=== PATIENT | male | born 1995 | race Caucasian/White ===

== ENCOUNTER 2018-08-08 14:26 | Emergency (ER) | payer OTHER ==
[2018-08-08 15:08] LABS: HEMATOCRIT 44.3 % (42.0-52.0); HEMOGLOBIN 14.7 g/dl (13.5-17.5); MEAN CORPUSCULAR HEMOGLOBIN 29.8 pg (27.0-33.0); MEAN CORPUSCULAR HGB CONC 33.2 g/dl (32.0-36.5); MEAN CORPUSCULAR VOLUME 89.9 fl (80.0-96.0); PLATELET COUNT, AUTOMATED 142 10^3/uL (150-450); RED BLOOD COUNT 4.93 10^6/uL (4.30-6.10); RED CELL DISTRIBUTION WIDTH 12.4 % (11.5-14.5); WHITE BLOOD COUNT 8.8 10^3/uL (4.0-10.0)
[2018-08-08] MEDS: LIDOCAINE 1% MDV 20ML VIAL SC (15:09)
[2018-08-08] MEDS: ACETAMINOPHEN TAB 650MG DOSE (2X325MG) PO (15:29)
[2018-08-08] MEDS: ADACEL/BOOSTRIX VACCINE (DIPHTH/PERTUSS/ACELL/TETANUS)0.5ML SYR (90715) IM (15:30)
[2018-08-08 15:53] LABS: ACETAMINOPHEN LEVEL < 2.0 UG/ML (10.0-30.0); ALBUMIN 4.1 GM/DL (3.2-5.2); ALBUMIN/GLOBULIN RATIO 1.46 (1.00-1.93); ALKALINE PHOSPHATASE 68 U/L (45-117); ALT/SGPT 23 U/L (12-78); ANION GAP 6 MEQ/L (8-16); AST/SGOT 18 U/L (7-37); BILIRUBIN,DIRECT < 0.1 MG/DL (0.0-0.2); BILIRUBIN,TOTAL 0.3 MG/DL (0.2-1.0); BLOOD UREA NITROGEN 14 MG/DL (7-18); CALCIUM LEVEL 8.7 MG/DL (8.5-10.1); CARBON DIOXIDE LEVEL 28 MEQ/L (21-32); CHLORIDE LEVEL 108 MEQ/L (98-107); CREATININE FOR GFR 0.91 MG/DL (0.70-1.30); ETHYL ALCOHOL (ETHANOL) 0.003 % (0.000-0.010); GLOMERULAR FILTRATION RATE > 60.0 (>60); GLUCOSE, FASTING 98 MG/DL (70-100); POTASSIUM SERUM 4.2 MEQ/L (3.5-5.1); SALICYLATE LEVEL 2.8 MG/DL (5.0-30.0); SODIUM LEVEL 142 MEQ/L (136-145); THYROID STIMULATING HORMONE 0.469 uIU/ML (0.358-3.740); TOTAL PROTEIN 6.9 GM/DL (6.4-8.2)
[2018-08-08 16:31] LABS: AMPHETAMINES LEVEL URINE NEGATIVE (NEGATIVE); BARBITURATES URINE NEGATIVE (NEGATIVE); BENZODIAZEPINES URINE NEGATIVE (NEGATIVE); CANNABINOIDS URINE NEGATIVE (NEGATIVE); COCAINE METABOLITE URINE NEGATIVE (NEGATIVE); METHADONE URINE NEGATIVE (NEGATIVE); OPIATES URINE NEGATIVE (NEGATIVE); PHENCYCLIDINE URINE NEGATIVE (NEGATIVE)
== END 2018-08-08 18:39 | disposition home or self-care (01) ==
LOC: M ED 14:26
DX: S61.411A Laceration without foreign body of right hand, initial encounter (principal); X58.XXXA Exposure to other specified factors, initial encounter; Y92.099 Unspecified place in other non-institutional residence as the place of occurrence of the external cause; Y93.9 Activity, unspecified; Y99.9 Unspecified external cause status; Z88.8 Allergy status to other drugs, medicaments and biological substances
CPT/HCPCS: 90715

== ENCOUNTER 2018-08-26 09:00 | Emergency (ER) | payer OTHER ==
[~2018-08-26] VITALS: Ht 180.3 cm; Wt 72.7 kg
[2018-08-26 09:01] VITALS: BP 142/76
[2018-08-26] MEDS ORDERED: CITA20TA4 PO (09:04)
[2018-08-26] MEDS ORDERED: NORCOTAB PO (09:26)
[2018-08-26] MEDS ORDERED: CLEO300C2 PO (09:26)
== END 2018-08-26 09:32 | disposition home or self-care (01) ==
LOC: M ED 09:00
DX: K04.7 Periapical abscess without sinus (principal); F33.9 Major depressive disorder, recurrent, unspecified; F41.9 Anxiety disorder, unspecified; Z88.8 Allergy status to other drugs, medicaments and biological substances; F17.210 Nicotine dependence, cigarettes, uncomplicated

== ENCOUNTER 2018-12-01 09:58 | Emergency (ER) | payer OTHER ==
[~2018-12-01] VITALS: Ht 177.8 cm; Wt 77.3 kg
[~2018-12-01 09:58] MED LIST: CITA20TA6 PO; CLEO300C2 PO; HYDR-3715 PO
[2018-12-01 09:59] VITALS: BP 132/78
[2018-12-01] MEDS ORDERED: IBUP80TA PO (11:07)
[2018-12-01] MEDS ORDERED: CLIN150C14 PO (11:07)
[2018-12-01] MEDS ORDERED: MAGICMW SSP (11:13)
[2018-12-01] MEDS ORDERED: IBUPROFEN 800 MG TAB PO ONE (11:15)
[2018-12-01] MEDS ORDERED: CLINDAMYCIN 150 MG CAP PO ONE (11:15)
== END 2018-12-01 11:23 | disposition home or self-care (01) ==
LOC: M ED 09:58
DX: K04.7 Periapical abscess without sinus (principal); F17.210 Nicotine dependence, cigarettes, uncomplicated; Z79.899 Other long term (current) drug therapy

== ENCOUNTER 2019-01-27 23:12 | Emergency (ER) | payer OTHER ==
[~2019-01-27] VITALS: Ht 180.3 cm; Wt 77.3 kg
[~2019-01-27 23:12] MED LIST changes: +CLIN150C14 PO; +IBUP80TA PO; +MAGICMW SSP
[2019-01-28 00:30] LABS: BASO # 0.1 10^3/uL (0.0-0.2); BASO % 0.7 % (0.0-1.0); EOS # 0.4 10^3/uL (0.0-0.50); EOS % 4.1 % (0.0-3.0); HEMATOCRIT 45.4 % (42.0-52.0); HEMOGLOBIN 15.5 g/dl (13.5-17.5); LYMPH # 1.5 10^3/uL (1.5-6.5); LYMPH % 15.9 % (24.0-44.0); MEAN CORPUSCULAR HEMOGLOBIN 30.4 pg (27.0-33.0); MEAN CORPUSCULAR HGB CONC 34.1 g/dl (32.0-36.5); MONO # 0.7 10^3/uL (0.0-0.8); MONO % 7.6 % (0.0-5.0); NEUTROPHILS # 6.8 10^3/uL (1.8-7.7); NEUTROPHILS % 71.4 % (36.0-66.0); PLATELET COUNT, AUTOMATED 156 10^3/uL (150-450); WHITE BLOOD COUNT 9.5 10^3/uL (4.0-10.0)
[2019-01-28 01:01] LABS: ALBUMIN 4.1 GM/DL (3.2-5.2); ALT/SGPT 32 U/L (12-78); BILIRUBIN,DIRECT < 0.1 MG/DL (0.0-0.2); BILIRUBIN,TOTAL 0.2 MG/DL (0.2-1.0); BLOOD UREA NITROGEN 17 MG/DL (7-18); CALCIUM LEVEL 9.4 MG/DL (8.5-10.1); CARBON DIOXIDE LEVEL 30 MEQ/L (21-32); CHLORIDE LEVEL 105 MEQ/L (98-107); CREATININE FOR GFR 0.93 MG/DL (0.70-1.30); GLOMERULAR FILTRATION RATE > 60.0 (>60); GLUCOSE, FASTING 104 MG/DL (70-100); LIPASE 73 U/L (73-393); POTASSIUM SERUM 4.3 MEQ/L (3.5-5.1); SODIUM LEVEL 140 MEQ/L (136-145); TOTAL PROTEIN 7.5 GM/DL (6.4-8.2)
[2019-01-28] MEDS ORDERED: ONDANSETRON 4MG/2ML VIAL (J2405) IV ONE (04:45)
[2019-01-28] MEDS ORDERED: KETOROLAC 30 MG/ML VIAL (J1885) IV ONE (04:45)
[2019-01-28] MEDS ORDERED: NS 1,000 ML IV ONE (04:45)
[2019-01-28] MEDS ORDERED: ONDA4TAB6 PO (06:43)
[2019-01-28 06:49] VITALS: BP 124/75
== END 2019-01-28 06:51 | disposition home or self-care (01) ==
LOC: M ED 23:12
DX: K52.9 Noninfective gastroenteritis and colitis, unspecified (principal); Z72.0 Tobacco use; Z79.899 Other long term (current) drug therapy; Z88.8 Allergy status to other drugs, medicaments and biological substances
CPT/HCPCS: 36415; 80048; 80076; 83690; 85025; 96374; 96375; 99284; J1885; J2405

== ENCOUNTER 2019-08-04 23:47 | Emergency (ER) | payer OTHER ==
[~2019-08-04] VITALS: Ht 175.3 cm; Wt 80.0 kg
[~2019-08-04 23:47] MED LIST changes: +ONDA4TAB6 PO
[2019-08-05 00:27] LABS: HEMATOCRIT 44.1 % (42.0-52.0); HEMOGLOBIN 14.4 g/dl (13.5-17.5); MEAN CORPUSCULAR HEMOGLOBIN 29.3 pg (27.0-33.0); MEAN CORPUSCULAR HGB CONC 32.7 g/dl (32.0-36.5); MEAN CORPUSCULAR VOLUME 89.6 fl (80.0-96.0); PLATELET COUNT, AUTOMATED 139 10^3/uL (150-450); RED BLOOD COUNT 4.92 10^6/uL (4.30-6.10)
[2019-08-05 01:12] LABS: ACETAMINOPHEN LEVEL < 2.0 UG/ML (10.0-30.0); ALBUMIN 4.2 GM/DL (3.2-5.2); ALT/SGPT 27 U/L (12-78); BILIRUBIN,DIRECT 0.1 MG/DL (0.0-0.2); BILIRUBIN,TOTAL 0.2 MG/DL (0.2-1.0); BLOOD UREA NITROGEN 22 MG/DL (7-18); CALCIUM LEVEL 8.8 MG/DL (8.5-10.1); CARBON DIOXIDE LEVEL 26 MEQ/L (21-32); CHLORIDE LEVEL 107 MEQ/L (98-107); CREATININE FOR GFR 1.02 MG/DL (0.70-1.30); ETHYL ALCOHOL (ETHANOL) < 0.003 % (0.000-0.010); GLOMERULAR FILTRATION RATE > 60.0 (>60); GLUCOSE, FASTING 93 MG/DL (70-100); SALICYLATE LEVEL 2.1 MG/DL (5.0-30.0); SODIUM LEVEL 140 MEQ/L (136-145); TOTAL PROTEIN 7.2 GM/DL (6.4-8.2)
[2019-08-05 02:55] LABS: AMPHETAMINES LEVEL URINE NEGATIVE (NEGATIVE); BARBITURATES URINE NEGATIVE (NEGATIVE); BENZODIAZEPINES URINE NEGATIVE (NEGATIVE); CANNABINOIDS URINE NEGATIVE (NEGATIVE); COCAINE METABOLITE URINE NEGATIVE (NEGATIVE); METHADONE URINE NEGATIVE (NEGATIVE); OPIATES URINE NEGATIVE (NEGATIVE); PHENCYCLIDINE URINE NEGATIVE (NEGATIVE)
--- NOTE | 2019-08-05 08:21 | ECGEPIP ---
[facility] - ED Test Date: 2019-08-05 Pat Name: KOKO CAMPOS Department: Room: - Gender: Male Client [employer] Specialist: KCJ : 1995 Requested By: JASEN Arizmendi Order Number: [id number] Reading MD: Eduardo Laureano Measurements Intervals [place] Rate: 64 P: 57 [place]: 136 QRS: 49 QRSD: 96 T: 38 QT: 405 QTc: 419 Interpretive Statements SINUS RHYTHM WITH SINUS ARRHYTHMIA SIMILAR TO 08/08/18 Electronically Signed on 08-05-2019 8:21:28 EST by Eduardo Laureano
[2019-08-05 08:45] VITALS: BP 126/59
== END 2019-08-05 08:51 ==
LOC: M ED 23:47
DX: R45.851 Suicidal ideations (principal); F32.9 Major depressive disorder, single episode, unspecified; F17.200 Nicotine dependence, unspecified, uncomplicated; Z88.8 Allergy status to other drugs, medicaments and biological substances
CPT/HCPCS: 80048; 80076; 80307; 84443; 85027; 93005; 99284; G0480

== ENCOUNTER 2020-06-27 12:45 | Inpatient (IN) | payer MEDICAID, OTHER ==
[~2020-06-27] VITALS: Ht 180.3 cm; Wt 72.0 kg
[2020-06-27] MEDS ORDERED: CITA20TA7 PO (12:58)
[2020-06-27 13:27] LABS: HEMOGLOBIN 14.6 g/dl (13.5-17.5); MEAN CORPUSCULAR HEMOGLOBIN 28.7 pg (27.0-33.0); MEAN CORPUSCULAR HGB CONC 32.4 g/dl (32.0-36.5); MEAN CORPUSCULAR VOLUME 88.6 fl (80.0-96.0); PLATELET COUNT, AUTOMATED 136 10^3/uL (150-450); RED BLOOD COUNT 5.08 10^6/uL (4.30-6.10); WHITE BLOOD COUNT 6.5 10^3/uL (4.0-10.0)
[2020-06-27 13:51] LABS: AMPHETAMINES LEVEL URINE NEGATIVE (NEGATIVE); BARBITURATES URINE NEGATIVE (NEGATIVE); BENZODIAZEPINES URINE NEGATIVE (NEGATIVE); CANNABINOIDS URINE NEGATIVE (NEGATIVE); COCAINE METABOLITE URINE NEGATIVE (NEGATIVE); METHADONE URINE NEGATIVE (NEGATIVE); OPIATES URINE NEGATIVE (NEGATIVE); PHENCYCLIDINE URINE NEGATIVE (NEGATIVE)
[2020-06-27 13:58] LABS: ACETAMINOPHEN LEVEL < 2.0 UG/ML (10.0-30.0); ALBUMIN 4.2 GM/DL (3.2-5.2); ALT/SGPT 28 U/L (12-78); BILIRUBIN,DIRECT < 0.1 MG/DL (0.0-0.2); BILIRUBIN,TOTAL 0.4 MG/DL (0.2-1.0); BLOOD UREA NITROGEN 17 MG/DL (7-18); CALCIUM LEVEL 8.6 MG/DL (8.5-10.1); CARBON DIOXIDE LEVEL 27 MEQ/L (21-32); CHLORIDE LEVEL 107 MEQ/L (98-107); CREATININE FOR GFR 0.93 MG/DL (0.70-1.30); ETHYL ALCOHOL (ETHANOL) < 0.003 % (0.000-0.010); GLOMERULAR FILTRATION RATE > 60.0 (>60); GLUCOSE, FASTING 89 MG/DL (70-100); POTASSIUM SERUM 4.1 MEQ/L (3.5-5.1); SALICYLATE LEVEL 2.3 MG/DL (5.0-30.0); SODIUM LEVEL 140 MEQ/L (136-145); TOTAL PROTEIN 7.2 GM/DL (6.4-8.2)
[2020-06-27] MEDS ORDERED: NICOTINE 21MG/24HR 1 EA TRANSDERMAL TD ONE (14:15)
--- NOTE | 2020-06-28 07:52 | ECGEPIP ---
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
[2020-06-28] MEDS ORDERED: CitaloPRAM (CeleXA) 20 MG TAB PO ONE (08:00)
[2020-06-28] MEDS ORDERED: MAALOX 30 ML SUSP *UDC PO PRN (14:15)
[2020-06-28] MEDS ORDERED: ACETAMINOPHEN TAB 650MG DOSE (2X325MG) PO PRN (14:15)
[2020-06-28] MEDS ORDERED: MOM 30ML SUSPENSION UDC PO PRN (14:15)
[2020-06-28 14:44] VITALS: BP 133/76
[2020-06-29 06:49] VITALS: BP 127/69
[2020-06-29] MEDS: NICOTINE 21MG/24HR 1 EA TRANSDERMAL TD SCH (08:17)
[2020-06-29] MEDS ORDERED: CitaloPRAM (CeleXA) 20 MG TAB PO SCH (09:00)
--- NOTE | 2020-06-29 10:23 | MHHPEPDOC ---
[facility] History & Physical History and Physical DATE OF ADMISSION: Jun 28, 2020 at 14:01 HPI: Bean presents today for treatment of depressive disorder. Patient reports feelings of worthlessness occassionally. He denies hearing voices or staying up for weeks at a time. He notes he experiences migraines. MEDICATIONS: He notes taking Citalopram 20 mg and it slightly improves his symptoms of depression. He reports taking 40 mg in the past, but was placed back on 20 mg d ue to a switch in doctors. He reports starting Citalopram 2 years ago. MEDICAL HISTORY: He reports seeing Anna at [facility] for therapy. Patient reports visiting an inpatient mental health unit last year due to similar symptoms. FAMILY HISTORY: Patient states his brother has mental health issues. SOCIAL HISTORY - LIVING SITUATION: He notes he was living with his and children, but now is currently moving to his parents house. Patient states he has 3 of his children, one step-child, and custody of 2 of his nieces. SOCIAL HISTORY - SMOKING: He reports smoking a pack of cigarettes a day. Objective Appearance: Well nourished. Well groomed. Appears to be stated age. Behavior: Pleasant. Cooperative with good eye contact. Engaged. Mood: Dysthymic. Mildly constricted. Thought Content: No evidence of aggressive or homicidal ideation. No evidence of suicidal ideation. No evidence of delusions. No thoughts of self harm. Judgement: Poor to fair. Insight: Poor to fair. Assessment F32.89 Other specified depressive episodes Plan Discharge patient. Increase the Citalopram to 40 milligrams daily. Observe likely length of stays three days. Treatment priorities are 1, risk for suicide 2, depression. Will observe, may need extension. Vital Signs Vital Signs Date Time Temp Pulse Resp B/P (MAP) Pulse Ox O2 Delivery O2 Flow Rate FiO2 06/29/20 06:49 98.1 81 12 127/69 (88) Room Air 06/28/20 14:44 98 Medications Scheduled Citalopram Hydrobromide (Citalopram HBr) 20 Mg Tablet, 20 MG PO DAILY, (Reported) Allergies Coded Allergies: loratadine (Verified Adverse Reaction, Unknown, 01/28/19) mood swings KETTY LINO DO Jun 29, 2020 10:23
[2020-06-29 17:53] VITALS: BP 114/60
--- NOTE | 2020-06-29 18:09 | HPEPDOC ---
[facility] Medical History & Physical Date of Admission Jun 28, 2020 Date of Service: Jun 29, 2020 History and Physical CHIEF COMPLAINT: Unspecified depressive disorder HISTORY OF PRESENT ILLNESS: Mr. Murillo is a 24 year old male with tobacco use disorder in the inpatient mental health unit for unspecified depressive disorder. Today, he is feeling well. Denies any fever or chills, lightheadedness or dizziness, chest pain, dyspnea, abdominal pain, diarrhea, or dysuria. Reports having a chronic cough secondary to smoking. Discussed briefly about tobacco cessation. He tells me that he does not feel ready to quit. He uses smoking as stress relief. His temper would be short if he goes too long without smoking. PAST MEDICAL HISTORY: 1. Depression/anxiety 2. Tobacco use disorder PAST SURGICAL HISTORY: 1. Tonsillectomy. SOCIAL HISTORY: Tobacco use: Current smoker, smoked for 8 years, 1 pack per day ETOH: Denies Illicit drug use: Denies FAMILY HISTORY: Father: History of diabetes mellitus, high blood pressure, hyperlipidemia Mother: History of hyperlipidemia, hypertension ALLERGIES: Please see below. REVIEW OF SYSTEMS: CONSTITUTIONAL: Denies any fever or chills. Denies lightheadedness or dizziness. ENT: Denies sore throat. Denies dysphagia. RESPIRATORY: Reports chronic cough. Denies shortness of breath CARDIOVASCULAR: Denies chest pain. Denies palpitations. GASTROINTESTINAL: Denies abdominal pain. Denies diarrhea. Denies constipation GENITOURINARY: Denies dysuria. CUTANEOUS: Denies rashes. HEMATOLOGY/ONCOLOGY: Reports easy bruisability MUSCULOSKELETAL: Denies muscle weakness. ENDOCRINE: Denies polyphagia, denies polyuria. HOME MEDICATIONS: Please see below. PHYSICAL EXAMINATION: VITAL SIGNS: Temperature 97.8, pulse 58, respiratory rate 16, blood pressure 114/60, pulse oximetry 98 % on room air. GENERAL: Comfortable, in no apparent distress. HEENT: Head normocephalic/atraumatic, EOMI, sclera clear. NECK: Supple, no JVD. RESPIRATORY: Lungs clear to auscultation bilaterally, no rales, wheeze or rhonchi. CARDIOVASCULAR: Regular rate and rhythm. ABDOMEN: Soft, nontender, no guarding or rebound tenderness. Normal bowel sounds. MUSCLE SKELETAL: Muscle strength 5/5 in all extremities. NEUROLOGICAL: CN 312 grossly intact, no focal deficits noted. PSYCHOLOGICAL: Normal mood and affect LABORATORY DATA: See below. ASSESSMENT and PLAN: 1. Unspecified depressive disorder Patient is in the inpatient mental health unit 2. Tobacco use disorder Discussed alternatives to smoking such as nicotine replacement. He says his tried it before in the past and has not helped him. He feels that he is not ready to quit at this time. He uses smoking as a stress reliever Thank you for involving us in patient care. We will sign off at this time. It is any further questions or concerns please do not hesitate to reconsult us Vital Signs Vital Signs Date Time Temp Pulse Resp B/P (MAP) Pulse Ox O2 Delivery O2 Flow Rate FiO2 06/29/20 17:53 97.8 58 16 114/60 (78) Room Air 06/28/20 14:44 98 Home Medications Scheduled Citalopram Hydrobromide (Citalopram HBr) 20 Mg Tablet, 20 MG PO DAILY Allergies Coded Allergies: loratadine (Verified Adverse Reaction, Unknown, 01/28/19) mood swings A-FIB/CHADSVASC A-FIB History Current/History of A-Fib/PAF?: No DEYVI SAMUEL DO Jun 29, 2020 18:08
[2020-06-29] MEDS: traZODone 50 MG TAB PO PRN (23:13)
[2020-06-30 06:53] VITALS: BP 119/56
[2020-06-30] MEDS: NICOTINE 21MG/24HR 1 EA TRANSDERMAL TD SCH (09:05)
[2020-06-30] MEDS: CitaloPRAM (CeleXA) 20 MG TAB PO SCH (09:06)
--- NOTE | 2020-06-30 10:41 | MHIPNPDOC ---
[facility] Progress Note Progress Note DATE OF SERVICE: 06/30/20 HPI: Bean presents today for a follow-up. Patient reports he is doing well. He notes voices are improving. Patient denies suicidal ideation, homicidal lalit ation, or visual hallucinations. He notes he will still scream sometimes. Objective Behavior: Poor eye contact. Cooperative. Affect: Flat with little reactivity. Cognition: Associations mildly intact. Appeears to be internally preoccupied. Thought Form: Linear and goal directed. Judgement: Fair. Insight: Fair. Assessment F25.0 Schizoaffective disorder, bipolar type Plan Continue with increased Zyprexa at 10 milligrams, Trileptal and Seroquel at this time. Will likely may need long-term treatment if does not improve. Vital Signs Vital Signs Date Time Temp Pulse Resp B/P (MAP) Pulse Ox O2 Delivery O2 Flow Rate FiO2 06/30/20 06:53 97.5 72 16 119/56 (77) 98 Room Air Current Medications Current Medications Medications (Trade) Dose Ordered Sig/[place] Route PRN Reason Start Time Stop Time Status Last Admin Dose Admin Acetaminophen (Tylenol Tab) 650 mg Q6HP PRN PO HEADACHE or DISCOMFORT 06/28/20 14:15 Al Hydrox/Mg Hydrox/Simethicone (Mylanta) 30 ml Q4HP PRN PO HEARTBURN/INDIGESTION 06/28/20 14:15 Citalopram Hydrobromide (CeleXA) 20 mg DAILY PO 06/29/20 09:00 06/29/20 14:24 DC 06/29/20 08:16 Citalopram Hydrobromide (CeleXA) 40 mg DAILY PO 06/30/20 09:00 06/30/20 09:06 Home Med (Med Rec Complete!) ASDIRECTED XX 06/27/20 17:30 06/27/20 17:25 DC Magnesium Hydroxide (Milk Of Magnesia) 30 ml DAILYPRN PRN PO CONSTIPATION 06/28/20 14:15 Nicotine (Nicoderm Cq 21mg) 1 patch DAILY TD 06/29/20 09:00 06/30/20 09:05 Trazodone HCl (Desyrel) 50 mg QHSP PRN PO INSOMNIA 06/28/20 14:15 06/29/20 23:13 Allergies Coded Allergies: loratadine (Verified Adverse Reaction, Unknown, 01/28/19) mood swings KETTY LINO DO Jun 30, 2020 10:41
[2020-06-30 18:46] VITALS: BP 132/59
[2020-06-30] MEDS: traZODone 50 MG TAB PO PRN (22:37)
[2020-07-01 06:20] VITALS: BP 107/51
[2020-07-01] MEDS: CitaloPRAM (CeleXA) 20 MG TAB PO SCH (09:10)
[2020-07-01] MEDS: NICOTINE 21MG/24HR 1 EA TRANSDERMAL TD SCH (09:11)
--- NOTE | 2020-07-01 11:02 | MHDSPDOC ---
[facility] Discharge Summary Discharge Summary DATE OF ADMISSION: Jun 28, 2020 at 14:01 DATE OF DISCHARGE: DISCHARGE DIAGNOSES: 1. . 2. . REASON FOR ADMISSION: CONSULTANTS INVOLVED: TREATMENT AND PROGRESS ON THE UNIT : . HOSPITAL COURSE: DISCHARGE ASSESSMENT: MENTAL STATUS EXAMINATION ON DISCHARGE: Patient is a -year old male, who is . Speech is . Language skills are . Thought processes including: . Thought content: . Abstract reasoning, and computation: . Description of associations: . Description of abnormal or psychotic thoughts: . Judgment: . Insight: . Orientation to . Recent and remote memory: . Attention span and concentration: . Language: . Fund of knowledge: . Mood: . Affect: . MEDICATIONS ON DISCHARGE: - for . - for . - for . PLAN/FOLLOWUP ARRANGEMENTS: . The amount of time spent in the coordination of care for this patient was approximately minutes. Vital Signs/I&Os Vital Signs Date Time Temp Pulse Resp B/P (MAP) Pulse Ox O2 Delivery O2 Flow Rate FiO2 07/01/20 06:20 98.1 56 16 107/51 (69) 96 Room Air Medications Scheduled Citalopram Hydrobromide (Citalopram HBr) 20 Mg Tablet, 20 MG PO DAILY, (Reported) Allergies Coded Allergies: loratadine (Verified Adverse Reaction, Unknown, 01/28/19) mood swings KETTY LINO DO Jul 01, 2020 11:02
[2020-07-01] MEDS ORDERED: CELE20TA PO (11:48)
[2020-07-01] MEDS ORDERED: NICO21PAT TD (11:48)
== END 2020-07-01 12:39 | disposition home or self-care (01) | DRG 753 ==
LOC: M ED 12:45 → M ED INP 06-28 14:01 → M PSY 06-28 14:45
PROVIDERS: ADMIT Psychiatry & Neurology Addiction Medicine; ATTEND Psychiatry & Neurology Addiction Medicine
DX: F32.89 Other specified depressive episodes (principal); F17.210 Nicotine dependence, cigarettes, uncomplicated; Z88.8 Allergy status to other drugs, medicaments and biological substances; Z79.899 Other long term (current) drug therapy

== ENCOUNTER 2023-09-19 14:13 | Emergency (ER) | payer BC, MEDICAID ==
[~2023-09-19] VITALS: Ht 177.8 cm; Wt 70.1 kg
[~2023-09-19 14:13] MED LIST changes: +CELE20TA PO; +CITA20TA7 PO; -CLIN150C14 PO; +CLIN150C17 PO; +NICO21PAT TD
[2023-09-19 15:55] LABS: BASO # 0.1 10^3/uL (0.0-0.2); BASO % 0.4 % (0.0-1.0); EOS # 0.2 10^3/uL (0.0-0.5); EOS % 1.5 % (0.0-3.0); HEMATOCRIT 43.7 % (42.0-52.0); HEMOGLOBIN 14.9 g/dl (13.5-17.5); LYMPH % 7.1 % (24.0-44.0); MEAN CORPUSCULAR HEMOGLOBIN 29.8 pg (27.0-33.0); MEAN CORPUSCULAR HGB CONC 34.1 g/dl (32.0-36.5); MEAN CORPUSCULAR VOLUME 87.4 fl (80.0-96.0); MONO # 0.8 10^3/uL (0.0-0.8); MONO % 6.2 % (2.0-8.0); NEUTROPHILS # 11.4 10^3/uL (1.5-8.5); NEUTROPHILS % 84.4 % (36.0-66.0); PLATELET COUNT, AUTOMATED 184 10^3/uL (150-450); WHITE BLOOD COUNT 13.5 10^3/uL (4.0-10.0)
[2023-09-19] MEDS ORDERED: KETOROLAC 30 MG/ML 1ML VIAL IV ONE (16:00)
[2023-09-19] MEDS ORDERED: AMPICILLIN SOD/SULBACTAM SOD 3 GM in D5W MINI-BAG PLUS 100 ML IV ONE (16:00)
[2023-09-19 16:06] LABS: ERYTHROCYTE SEDIMENTATION RATE 21 mm/hr (0-15)
[2023-09-19] MEDS ORDERED: ISOVUE-370 76% 100ML VIAL As Ordered ONE (16:07)
[2023-09-19] MEDS ORDERED: AMOX875T2 PO (17:07)
[2023-09-19] MEDS ORDERED: IBUP-1022 PO (17:07)
[2023-09-19 17:15] VITALS: BP 121/64; TEMP 98.9; O2SAT 100
== END 2023-09-19 17:16 | disposition home or self-care (01) ==
LOC: M ED 14:13
DX: K04.7 Periapical abscess without sinus (principal); Z79.2 Long term (current) use of antibiotics; Z79.1 Long term (current) use of non-steroidal anti-inflammatories (NSAID)
CPT/HCPCS: 36415; 70487; 80047; 83605; 85025; 85652; 86140; 87040; 96365; 96375; 99284; J0295; J1885; Q9967